=== PATIENT | female | born 1950 | race Caucasian/White ===

== ENCOUNTER 2016-03-21 08:00 | Outpatient (CLI) | payer BC, MEDICARE | END 2016-03-21 08:01 | disposition home or self-care (01) | DX: I10 Essential (primary) hypertension (principal); E03.9 Hypothyroidism, unspecified; E78.5 Hyperlipidemia, unspecified; Z79.4 Long term (current) use of insulin; E11.65 Type 2 diabetes mellitus with hyperglycemia ==

== ENCOUNTER 2016-07-23 14:27 | Outpatient (CLI) | payer MEDICARE | END 2016-07-23 14:28 | disposition home or self-care (01) | DX: E11.9 Type 2 diabetes mellitus without complications (principal); Z79.4 Long term (current) use of insulin ==

== ENCOUNTER 2016-10-21 08:00 | Outpatient (CLI) | payer MEDICARE ==
[2016-10-21 18:01] LABS: CALCIUM 9.2 mg/dL (8.5-10.3); CREATININE 0.8 mg/dL (0.4-1.0)
[2016-10-21 18:13] LABS: HEMOGLOBIN A1C 1.14 g/dL
== END 2016-10-21 08:01 | disposition home or self-care (01) ==
LOC: LAB.F 08:00
PROVIDERS: ATTEND Family Medicine
DX: E11.8 Type 2 diabetes mellitus with unspecified complications (principal); Z79.4 Long term (current) use of insulin
CPT/HCPCS: 36415; 80048; 83036

== ENCOUNTER 2016-11-05 14:17 | Outpatient (CLI) | payer MEDICARE | END 2016-11-05 14:18 | disposition home or self-care (01) | LOC: LAB.F 14:17 | PROVIDERS: ATTEND Nurse Practitioner | DX: E87.6 Hypokalemia (principal) | CPT/HCPCS: 36415; 84132 ==

== ENCOUNTER 2016-12-24 13:39 | Emergency (ER) | payer MEDICARE ==
[2016-12-24 13:47] VITALS: BP 137/76
--- NOTE | 2016-12-24 14:04 | ED Physician Documentation ---
History of Present Illness - Stated complaint Stated Complaint: GLF/LT SIDE PX - Chief complaint Chief Complaint: General - History obtained from History obtained from: Patient - History of Present Illness Timing: Other ([place] tripped and landed on someone's suitcase with the left chest wall and has persistent and now increasing pain there without other injuries or shortness of breath. No head injury or neck injury.) Review of Systems Constitutional: reports: Reviewed and negative Cardiac: denies: Palpitations, Pedal edema, Calf pain Respiratory: denies: Dyspnea, Cough GI: denies: Abdominal Pain PD PAST MEDICAL HISTORY - Present Medications Home Medications: Ambulatory Orders Medication Instructions Recorded Confirmed Insulin Aspart [NovoLOG] 5 unit SUBQ TIDWM 12/24/16 12/24/16 Insulin Detemir [Levemir Flextouch] 35 unit SQ DAILY 12/24/16 12/24/16 Simvastatin 20 mg PO DAILY 12/24/16 12/24/16 - Allergies Allergies/Adverse Reactions: Allergies Allergy/AdvReac Type Severity Reaction Status Date / Time Penicillins Allergy Rash Verified 12/24/16 13:46 PD ED PE NORMAL - Vitals Vital signs reviewed: Yes - General General: Alert and oriented X 3, No acute distress - Neck Neck: Supple, no meningeal sign, No bony TTP - Cardiac Cardiac: RRR, No murmur, Other (Tender over the lower ribs on the left laterally without overlying bruising.) - Respiratory Respiratory: No respiratory distress, Clear bilaterally - Abdomen Abdomen: Non tender - Extremities Extremities: No deformity, No tenderness to palpate, No edema, No calf tenderness / cord - Neuro Neuro: Alert and oriented X 3, No motor deficit, No sensory deficit, Normal speech - Psych Psych: Normal mood Results - Vitals Vitals: Vital Signs - 24 hr 12/24/16 13:42 Temperature 36.7 C Heart Rate 70 Respiratory 14 Rate Blood Pressure 137/76 H O2 Saturation 98 Oxygen O2 Source Room air - Rads (name of study) PA chest with L ribs Radiology: EMP read contemporaneously (Negative) PD MEDICAL DECISION MAKING - ED course ED course: She declined prescription pain medication. We discussed that she may have a hairline fracture of the rib but it is not visible on x-ray. Departure - Departure Disposition: 01 Home, Self Care Clinical Impression: Contusion of left chest wall Qualifiers: Encounter type: initial encounter Qualified Code(s): S20.212A - Contusion of left front wall of thorax, initial encounter Condition: Good Record reviewed to determine appropriate education?: Yes Instructions: ED Contusion Chest Wall Comments: Tylenol or ibuprofen as needed for pain. Return if worse. Your blood pressure was elevated today on check into the emergency department. This does not mean that you have hypertension, it is a common phenomenon to come to the emergency department and have elevated blood pressure. I recommend that you see your primary care physician within the week to have it rechecked when you are feeling better.
--- NOTE | 2016-12-24 15:05 | XRAY Preliminary Report ---
Exam: XR RIBS W/PA CHEST LT IMPRESSION: Negative chest and left rib radiography for acute findings. Chronic scoliosis and degener ative change in the spine noted. [facility] SITE ID: [id number]
--- NOTE | 2016-12-24 15:07 | XRAY Report ---
EXAM: LEFT RIB RADIOGRAPHY EXAM DATE: 12/24/2016 02:45 PM. CLINICAL HISTORY: Chest wall injury. COMPARISON: None. TECHNIQUE: 1 view of the chest and 2 views of the left ribs. FINDINGS: Bones: No fracture or bone lesion. Lungs: No focal opacities. No pneumothorax. No pleural effusions. Mediastinum: Heart and mediastinal contours are unremarkable. Other: Moderately severe S-shaped thoracolumbar scoliosis with superimposed degenerative changes. IMPRESSION: Negative chest and left rib radiography for acute findings. Chronic scoliosis and degener ative change in the spine noted. [facility] Referring Provider Line: [phone] SITE ID: [id number]
== END 2016-12-24 15:21 | disposition home or self-care (01) ==
LOC: ED 13:39
DX: S20.212A Contusion of left front wall of thorax, initial encounter (principal); W18.09XA Striking against other object with subsequent fall, initial encounter; Y92.520 Airport as the place of occurrence of the external cause
CPT/HCPCS: 99283

== ENCOUNTER 2017-02-25 08:48 | Outpatient (CLI) | payer MEDICARE ==
[2017-02-25 18:16] LABS: ALBUMIN 4.1 g/dL (3.2-5.5); ALBUMIN/GLOBULIN RATIO 1.7 (1.0-2.2); ALKALINE PHOSPHATASE 61 IU/L (42-121); ALT ALANINE AMINOTRANSFERASE 30 IU/L (10-60); AST ASPARTATE AMINOTRANSFERASE 26 IU/L (10-42); BILIRUBIN,TOTAL 0.9 mg/dL (0.2-1.0); BUN - BLOOD UREA NITROGEN 15 mg/dL (6-20); CALCIUM 9.1 mg/dL (8.5-10.3); CARBON DIOXIDE - CO2 27 mmol/L (21-32); CHLORIDE 101 mmol/L (101-111); CHOL/HDL RATIO 2.4 (<4.4); CHOLESTEROL 180 mg/dL; CREATININE 0.5 mg/dL (0.4-1.0); GFR - MDRD 123 (>89); GLUCOSE 159 mg/dL (70-100); HDL CHOLESTEROL 76 mg/dL; LDL CHOLESTEROL,CALCULATED 93 mg/dL; LDL/HDL RATIO 1.2 (<4.4); SODIUM 138 mmol/L (135-145); TOTAL PROTEIN 6.5 g/dL (6.7-8.2); VLDL CHOLESTEROL 11 mg/dL
[2017-02-25 18:18] LABS: HB2 TOTAL 15.5 g/dL; HEMOGLOBIN A1C 1.1 g/dL; HEMOGLOBIN A1C % 8.6 % (4.6-6.2)
[2017-02-26 13:51] LABS: HEPATITIS C ANTIBODY NON-REACTIVE (NON-REACTIVE)
== END 2017-02-25 08:49 | disposition home or self-care (01) ==
LOC: LAB.F 08:48
PROVIDERS: ATTEND Family Medicine
DX: I10 Essential (primary) hypertension (principal); Z11.59 Encounter for screening for other viral diseases; Z12.11 Encounter for screening for malignant neoplasm of colon; E11.65 Type 2 diabetes mellitus with hyperglycemia; Z79.4 Long term (current) use of insulin; E03.9 Hypothyroidism, unspecified; E78.5 Hyperlipidemia, unspecified
CPT/HCPCS: 36415; 80053; 80061; 81599; 82270; 83036; 84439; 84443; 86803

== ENCOUNTER 2017-10-23 10:21 | Outpatient (CLI) | payer MEDICARE ==
[2017-10-23 17:54] LABS: HB2 TOTAL 15.3 g/dL; HEMOGLOBIN A1C 1.23 g/dL; HEMOGLOBIN A1C % 9.5 % (4.6-6.2)
== END 2017-10-23 10:22 | disposition home or self-care (01) ==
LOC: LAB.F 10:21
PROVIDERS: ATTEND Nurse Practitioner
DX: E11.8 Type 2 diabetes mellitus with unspecified complications (principal); Z79.4 Long term (current) use of insulin
CPT/HCPCS: 36415; 83036

== ENCOUNTER 2018-02-03 07:07 | Outpatient (CLI) | payer MEDICARE ==
[2018-02-03 10:57] LABS: CHOL/HDL RATIO 3.6 (<4.4); CHOLESTEROL 245 mg/dL; HDL CHOLESTEROL 69 mg/dL; LDL CHOLESTEROL,CALCULATED 162 mg/dL; LDL/HDL RATIO 2.3 (<4.4); VLDL CHOLESTEROL 14 mg/dL
[2018-02-03 11:02] LABS: HB2 TOTAL 16.2 g/dL; HEMOGLOBIN A1C 1.08 g/dL; HEMOGLOBIN A1C % 8.3 % (4.6-6.2)
[2018-02-05 23:12] LABS: DHEA SULFATE 22 mcg/dL (12-133)
== END 2018-02-03 07:08 | disposition home or self-care (01) ==
LOC: LAB.F 07:07
PROVIDERS: ATTEND Internal Medicine Endocrinology, Diabetes & Metabolism
DX: E78.5 Hyperlipidemia, unspecified (principal); E11.9 Type 2 diabetes mellitus without complications; F33.9 Major depressive disorder, recurrent, unspecified
CPT/HCPCS: 36415; 80061; 81599; 82533; 82627; 83036; 83721; 84140; 84260

== ENCOUNTER 2018-02-19 13:07 | Outpatient (CLI) | payer MEDICARE | END 2018-02-19 13:08 | disposition home or self-care (01) | LOC: LAB.F 13:07 | PROVIDERS: ATTEND Dermatology | DX: Z53.9 Procedure and treatment not carried out, unspecified reason (principal) ==

== ENCOUNTER 2018-02-23 10:54 | Outpatient (CLI) | payer MEDICARE | END 2018-02-23 10:55 | disposition home or self-care (01) | LOC: LAB.F 10:54 | PROVIDERS: ATTEND Dermatology | DX: L40.0 Psoriasis vulgaris (principal); Z79.899 Other long term (current) drug therapy ==

== ENCOUNTER 2018-12-31 15:06 | Outpatient (CLI) | payer MEDICARE ==
[2018-12-31 18:02] LABS: CREATININE 0.6 mg/dL (0.4-1.0)
== END 2018-12-31 15:07 | disposition home or self-care (01) ==
LOC: LAB.S 15:06
PROVIDERS: ATTEND Family Medicine
DX: Z01.812 Encounter for preprocedural laboratory examination (principal); R51 Headache; R47.01 Aphasia
CPT/HCPCS: 36415; 82565

== ENCOUNTER 2019-01-18 13:30 | Outpatient (CLI) | payer MEDICARE ==
--- NOTE | 2019-01-18 16:24 | XRAY Report ---
Reason: NECK PAIN, TENDERNESS OF LEFT SIDE W/RADICULOPATHY Procedure Date: 01/18/2019 Accession Number: [id number] / [id number] Procedure: XRS - Cervical Spine 2 View CPT Code: Final Report FULL RESULT: EXAM: CERVICAL SPINE RADIOGRAPHY EXAM DATE: 01/18/2019 01:56 PM. CLINICAL HISTORY: Neck pain, tenderness of left side with radiculopathy. COMPARISONS: None. TECHNIQUE: 3 views. FINDINGS: Alignment: Degenerative straightening of the cervical lordosis, C2-C3 disk level and below. Bones: The cervical vertebral bodies and posterior elements are well visualized from the skull base through C7-T1. No fractures or bone lesions. Disks: Moderate to severe disk space narrowing at C3-C4, C4-C5 with mild to moderate anterior lateral osteophytosis and mild dorsal osteophytosis. Milder disk space narrowing noted at C5-C6 and C6-C7 with dominantly anterior marginal osteophytosis. Facets: No degenerative disease. Soft Tissues: Normal. No prevertebral soft tissue swelling. The visualized lung apices are clear. IMPRESSION: 1. Multilevel degenerative disk changes as detailed. No appreciable fracture. 2. Straightening of the cervical lordosis could be due to degenerative changes or superimposed neck spasm. [facility]
== END 2019-01-18 13:31 | disposition home or self-care (01) ==
LOC: DI.S 13:30
PROVIDERS: ATTEND Physician Assistant Medical
DX: M50.31 Other cervical disc degeneration, high cervical region (principal)
CPT/HCPCS: 72040

== ENCOUNTER 2019-05-13 10:07 | Outpatient (CLI) | payer MEDICARE ==
[2019-05-13 17:55] LABS: BASOPHILS # (AUTO) 0.1 10^3/uL (0.0-0.1); EOSINOPHILS # (AUTO) 0.1 10^3/uL (0.0-0.7); EOSINOPHILS % (AUTO) 1.6 %; HGB - HEMOGLOBIN 15.8 g/dL (12.0-16.0); LYMPHOCYTES # (AUTO) 2.2 10^3/uL (1.5-3.5); LYMPHOCYTES % (AUTO) 35.4 %; MEAN CORPUSCULAR HGB CONC 31.5 g/dL (32.0-36.0); MEAN CORPUSCULAR VOLUME 91.9 fL (81.0-99.0); MEAN PLATELET VOLUME 10.2 fL (7.9-10.8); MONOCYTES # (AUTO) 0.4 10^3/uL (0.0-1.0); MONOCYTES % (AUTO) 6.4 %; NEUTROPHILS # (AUTO) 3.4 10^3/uL (1.5-6.6); NEUTROPHILS % (AUTO) 55.4 %; PLT - PLATELET COUNT 239 10^3/uL (130-450); RED BLOOD COUNT 5.45 10^6/uL (4.20-5.40); RED CELL DISTRIBUTION WIDTH 12.9 % (12.0-15.0); WHITE BLOOD COUNT 6.1 x10^3/uL (4.8-10.8)
[2019-05-13 18:20] LABS: ALBUMIN 4.5 g/dL (3.2-5.5); ALKALINE PHOSPHATASE 61 IU/L (42-121); ALT ALANINE AMINOTRANSFERASE 20 IU/L (10-60); AST ASPARTATE AMINOTRANSFERASE 20 IU/L (10-42); BILIRUBIN,TOTAL 0.8 mg/dL (0.2-1.0); BUN - BLOOD UREA NITROGEN 23 mg/dL (6-20); CALCIUM 9.5 mg/dL (8.5-10.3); CARBON DIOXIDE - CO2 30 mmol/L (21-32); CHLORIDE 103 mmol/L (101-111); CHOL/HDL RATIO 3.3 (<4.4); CHOLESTEROL 224 mg/dL; CREATININE 0.7 mg/dL (0.4-1.0); GFR - MDRD 83 (>89); GLUCOSE 85 mg/dL (70-100); HDL CHOLESTEROL 68 mg/dL; LDL CHOLESTEROL,CALCULATED 147 mg/dL; LDL/HDL RATIO 2.2 (<4.4); SODIUM 140 mmol/L (135-145); TOTAL PROTEIN 6.7 g/dL (6.7-8.2); VLDL CHOLESTEROL 9 mg/dL
[2019-05-13 18:24] LABS: THYROID STIMULATING HORMONE 1.12 uIU/mL (0.34-5.60)
== END 2019-05-13 10:08 | disposition home or self-care (01) ==
LOC: LAB.S 10:07
PROVIDERS: ATTEND Nurse Practitioner Psychiatric/Mental Health
DX: E55.9 Vitamin D deficiency, unspecified (principal); F43.12 Post-traumatic stress disorder, chronic; F41.0 Panic disorder [episodic paroxysmal anxiety]
CPT/HCPCS: 36415; 80053; 80061; 82306; 82607; 83721; 84443; 85025

== ENCOUNTER 2020-09-19 08:12 | Outpatient (CLI) | payer MEDICARE ==
[2020-09-19 15:30] LABS: BASOPHILS % (AUTO) 0.5 %; EOSINOPHILS # (AUTO) 0.1 10^3/uL (0.0-0.7); EOSINOPHILS % (AUTO) 1.2 %; HGB - HEMOGLOBIN 15.7 g/dL (12.0-16.0); LYMPHOCYTES # (AUTO) 1.3 10^3/uL (1.5-3.5); LYMPHOCYTES % (AUTO) 15.9 %; MEAN CORPUSCULAR HEMOGLOBIN 30.5 pg (27.0-31.0); MEAN CORPUSCULAR HGB CONC 32.7 g/dL (32.0-36.0); MEAN CORPUSCULAR VOLUME 93.2 fL (81.0-99.0); MEAN PLATELET VOLUME 10.6 fL (7.9-10.8); MONOCYTES # (AUTO) 0.5 10^3/uL (0.0-1.0); MONOCYTES % (AUTO) 6.1 %; NEUTROPHILS # (AUTO) 6.4 10^3/uL (1.5-6.6); NEUTROPHILS % (AUTO) 75.9 %; PLT - PLATELET COUNT 196 10^3/uL (130-450); RED BLOOD COUNT 5.15 10^6/uL (4.20-5.40); RED CELL DISTRIBUTION WIDTH 13.3 % (12.0-15.0); WHITE BLOOD COUNT 8.4 x10^3/uL (4.8-10.8)
[2020-09-19 15:59] LABS: ALBUMIN 4.1 g/dL (3.2-5.5); ALBUMIN/GLOBULIN RATIO 1.6 (1.0-2.2); BILIRUBIN,TOTAL 0.9 mg/dL (0.2-1.0); CALCIUM 8.9 mg/dL (8.5-10.3); CREATININE 0.6 mg/dL (0.4-1.0); CRP - C-REACTIVE PROTEIN 1.4 mg/dL (0-1.0); POTASSIUM 3.4 mmol/L (3.5-5.0); TOTAL PROTEIN 6.7 g/dL (6.7-8.2)
[2020-09-19 20:06] LABS: ESTIMATED AVERAGE GLUCOSE 189 mg/dL (70-100); HEMOGLOBIN A1c% 8.2 % (4.27-6.07)
[2020-09-20 05:17] LABS: ESTRADIOL <15 pg/mL; PROGESTERONE <0.5 ng/mL
[2020-09-20 10:31] LABS: HOMOCYSTEINE 7.4 umol/L (<10.4)
[2020-09-22 12:37] LABS: CYCLIC CITRULL PEPTIDE CCP IGG <16 UNITS
[2020-09-23 18:32] LABS: HDL LARGE 9805 nmol/L (>6729); LDL MEDIUM 466 nmol/L (<215); LDL PARTICLE NUMBER 2129 nmol/L (<1138); LDL PATTERN A Pattern (A); LDL PEAK SIZE 218.7 Angstrom (>222.9); LDL SMALL 354 nmol/L (<142)
[2020-09-25 20:46] LABS: COPPER 131 mcg/dL (70-175)
== END 2020-09-19 08:13 | disposition home or self-care (01) ==
LOC: LAB.S 08:12
DX: G89.29 Other chronic pain (principal); L12.9 Pemphigoid, unspecified; Z77.120 Contact with and (suspected) exposure to mold (toxic); E88.89 Other specified metabolic disorders; Z73.3 Stress, not elsewhere classified; R79.89 Other specified abnormal findings of blood chemistry; G47.9 Sleep disorder, unspecified; E63.9 Nutritional deficiency, unspecified; F41.9 Anxiety disorder, unspecified
CPT/HCPCS: 36415; 80053; 81291; 81376; 81382; 81599; 82306; 82525; 82626; 82670; 82728; 82784; 83036; 83090; 83516; 83525; 83540; 83695; 83704; 84140; 84144; 84270; 84402; 84403; 84466; 84630; 85025; 86140; 86200

== ENCOUNTER 2020-09-21 08:00 | Outpatient (CLI) | payer MEDICARE | END 2020-09-21 23:59 | disposition home or self-care (01) | LOC: LAB.S 08:00 | PROVIDERS: ATTEND Physician Assistant | DX: R05 Cough (principal); Z20.822 Contact with and (suspected) exposure to COVID-19 ==

== ENCOUNTER 2020-11-14 14:40 | Outpatient (CLI) | payer MEDICARE ==
[2020-11-14 20:54] LABS: THYROID STIMULATING HORMONE 1.47 uIU/mL (0.34-5.60)
[2020-11-14 20:56] LABS: FREE T4 (FREE THYROXINE) 0.86 ng/dL (0.58-1.64)
[2020-11-14 20:57] LABS: FREE T3 3.37 pg/mL (2.5-3.9)
[2020-11-17 15:41] LABS: INTRINSIC FACTOR BLOCKING AB NEGATIVE
[2020-11-19 21:01] LABS: THYROID PEROXIDASE ANTIBODIES <1 IU/mL (<9)
[2020-11-20 14:20] LABS: T3 REVERSE 16 ng/dL (8-25)
== END 2020-11-14 14:41 | disposition home or self-care (01) ==
LOC: LAB.S 14:40
PROVIDERS: ATTEND Family Medicine
DX: G47.9 Sleep disorder, unspecified (principal); R53.82 Chronic fatigue, unspecified; G89.29 Other chronic pain; E63.9 Nutritional deficiency, unspecified
CPT/HCPCS: 36415; 82607; 84439; 84443; 84480; 84481; 84482; 86340; 86376; 86800

== ENCOUNTER 2020-11-20 15:42 | Outpatient (CLI) | payer MEDICARE ==
[2020-11-20 20:00] LABS: ALBUMIN 4.1 g/dL (3.2-5.5); ALBUMIN/GLOBULIN RATIO 1.6 (1.0-2.2); BILIRUBIN,TOTAL 0.9 mg/dL (0.2-1.0); CALCIUM 9.5 mg/dL (8.5-10.3); CREATININE 0.6 mg/dL (0.4-1.0); POTASSIUM 3.7 mmol/L (3.5-5.0); TOTAL PROTEIN 6.7 g/dL (6.7-8.2)
== END 2020-11-20 15:43 | disposition home or self-care (01) ==
LOC: LAB.S 15:42
PROVIDERS: ATTEND Physician Assistant Medical
DX: R42 Dizziness and giddiness (principal); H83.2X9 Labyrinthine dysfunction, unspecified ear
CPT/HCPCS: 36415; 80053

== ENCOUNTER 2021-04-05 09:21 | Outpatient (CLI) | payer MEDICARE ==
[2021-04-05 15:44] LABS: CREATININE,URINE 123.3 mg/dL; MICROALBUMIN,URINE < 0.2 mg/dL (0-300.0)
[2021-04-05 15:46] LABS: ESTIMATED AVERAGE GLUCOSE 166 mg/dL (70-100); HEMOGLOBIN A1c% 7.4 % (4.27-6.07)
[2021-04-05 15:52] LABS: ALBUMIN 4.3 g/dL (3.2-5.5); ALBUMIN/GLOBULIN RATIO 1.8 (1.0-2.2); ALKALINE PHOSPHATASE 55 IU/L (42-121); ALT ALANINE AMINOTRANSFERASE 17 IU/L (10-60); AST ASPARTATE AMINOTRANSFERASE 18 IU/L (10-42); BILIRUBIN,TOTAL 0.8 mg/dL (0.2-1.0); BUN - BLOOD UREA NITROGEN 21 mg/dL (6-20); CALCIUM 9.2 mg/dL (8.5-10.3); CARBON DIOXIDE - CO2 30 mmol/L (21-32); CHLORIDE 99 mmol/L (101-111); CHOL/HDL RATIO 2.9 (<4.4); CHOLESTEROL 217 mg/dL; CREATININE 0.7 mg/dL (0.4-1.0); GFR - MDRD 83 (>89); GLUCOSE 147 mg/dL (70-100); HDL CHOLESTEROL 75 mg/dL; LDL CHOLESTEROL,CALCULATED 131 mg/dL; LDL/HDL RATIO 1.7 (<4.4); SODIUM 138 mmol/L (135-145); TOTAL PROTEIN 6.7 g/dL (6.7-8.2); TRIGLYCERIDES 54 mg/dL; VLDL CHOLESTEROL 11 mg/dL
== END 2021-04-05 09:22 | disposition home or self-care (01) ==
LOC: LAB.S 09:21
PROVIDERS: ATTEND Nurse Practitioner Psychiatric/Mental Health
DX: E11.65 Type 2 diabetes mellitus with hyperglycemia (principal); E78.5 Hyperlipidemia, unspecified; Z79.899 Other long term (current) drug therapy; F43.12 Post-traumatic stress disorder, chronic
CPT/HCPCS: 36415; 80053; 80061; 82043; 82570; 83036; 83721

== ENCOUNTER 2022-02-26 08:00 | Outpatient (CLI) | payer MEDICARE ==
[2022-02-26 18:39] LABS: BASOPHILS # (AUTO) 0.1 10^3/uL (0.0-0.1); BASOPHILS % (AUTO) 0.6 %; EOSINOPHILS # (AUTO) 0.1 10^3/uL (0.0-0.7); EOSINOPHILS % (AUTO) 0.5 %; HCT - HEMATOCRIT 47.5 % (37.0-47.0); HGB - HEMOGLOBIN 15.2 g/dL (12.0-16.0); LYMPHOCYTES # (AUTO) 2.7 10^3/uL (1.5-3.5); LYMPHOCYTES % (AUTO) 25.3 %; MEAN CORPUSCULAR VOLUME 90.6 fL (81.0-99.0); MONOCYTES # (AUTO) 0.6 10^3/uL (0.0-1.0); MONOCYTES % (AUTO) 5.9 %; NEUTROPHILS # (AUTO) 7.1 10^3/uL (1.5-6.6); NEUTROPHILS % (AUTO) 67.4 %; PLT - PLATELET COUNT 308 10^3/uL (130-450); RED BLOOD COUNT 5.24 10^6/uL (4.20-5.40); RED CELL DISTRIBUTION WIDTH 12.6 % (12.0-15.0); WHITE BLOOD COUNT 10.5 x10^3/uL (4.8-10.8)
[2022-02-26 19:19] LABS: ALBUMIN 3.6 g/dL (3.2-5.5); ALBUMIN/GLOBULIN RATIO 1.3 (1.0-2.2); BILIRUBIN,TOTAL 0.7 mg/dL (0.2-1.0); CALCIUM 8.8 mg/dL (8.5-10.3); CREATININE 0.7 mg/dL (0.4-1.0); POTASSIUM 4.1 mmol/L (3.5-5.0); TOTAL PROTEIN 6.3 g/dL (6.7-8.2)
[2022-02-26 19:36] LABS: THYROID STIMULATING HORMONE 1.7 uIU/mL (0.34-5.60)
== END 2022-02-26 23:59 | disposition home or self-care (01) ==
LOC: LAB 08:00
PROVIDERS: ATTEND Family Medicine
DX: R53.83 Other fatigue (principal)
CPT/HCPCS: 36415; 80053; 84443; 85025

== ENCOUNTER 2022-02-27 12:45 | Outpatient (CLI) | payer MEDICARE ==
--- NOTE | 2022-02-27 16:38 | XRAY Report ---
PROCEDURE: Chest 2 View X-Ray INDICATIONS: CHEST CONGESTION TECHNIQUE: 2 views of the chest were acquired. COMPARISON: 09/19/2021 FINDINGS: Surgical changes and devices: None. Lungs and pleura: No pleural effusions or pneumothorax. Lungs are clear. Mediastinum: Mediastinal contours are normal. Heart size is normal. Bones and chest wall: S-shaped scoliosis of thoracic and lumbar spine is seen. No suspicious bony ab normalities. Soft tissues appear unremarkable. IMPRESSION: No focal infiltrate, pleural effusion or pneumothorax. Reviewed by: Alexander Merlos MD on 02/27/2022 4:37 PM PST Approved by: Alexander Merlos MD on 02/27/2022 4:37 PM PST Station ID: [id number]
== END 2022-02-27 12:46 | disposition home or self-care (01) ==
LOC: DI.S 12:45
PROVIDERS: ATTEND Family Medicine
DX: R05.9 Cough, unspecified (principal); R09.89 Other specified symptoms and signs involving the circulatory and respiratory systems

== ENCOUNTER 2022-07-22 08:54 | Outpatient (CLI) | payer MEDICARE ==
[2022-07-23 17:08] LABS: ANTI-DNA (DS) AB QN <1 IU/mL (0-9); CENTROMERE B ANTIBODIES <0.2 AI (0.0-0.9); CHROMATIN ANTIBODIES <0.2 AI (0.0-0.9); JO-1 AB <0.2 AI (0.0-0.9); RIBOSOMAL P ANTIBODIES <0.2 AI (0.0-0.9); RNP ANTIBODIES <0.2 AI (0.0-0.9); SCLERODERMA-70 ANTIBODIES <0.2 AI (0.0-0.9); SJOGREN'S ANTI-SS-A <0.2 AI (0.0-0.9); SJOGREN'S ANTI-SS-B <0.2 AI (0.0-0.9); SMITH ANTIBODIES <0.2 AI (0.0-0.9); SMITH/RNP ANTIBODIES <0.2 AI (0.0-0.9)
[2022-07-24 13:10] LABS: ATYPICAL pANCA <1:20 titer (Neg:<1:20); CYTOPLASMIC (C-ANCA) <1:20 titer (Neg:<1:20); PERINUCLEAR (P-ANCA) <1:20 titer (Neg:<1:20)
== END 2022-07-22 08:55 | disposition home or self-care (01) ==
LOC: LAB.S 08:54
DX: R42 Dizziness and giddiness (principal)
CPT/HCPCS: 36415; 85651; 86140; 86225; 86235

== ENCOUNTER 2023-05-26 14:03 | Outpatient (CLI) | payer MEDICARE | END 2023-05-26 14:04 | disposition home or self-care (01) | LOC: LAB.S 14:03 | PROVIDERS: ATTEND Otolaryngology | DX: R42 Dizziness and giddiness (principal) | CPT/HCPCS: 36415; 85651; 86038; 86140 ==